=== PATIENT | female | born 1990 | race Caucasian/White ===

== ENCOUNTER 2017-04-03 18:36 | Emergency (ER) | payer BC ==
[~2017-04-03] VITALS: Ht 152.4 cm; Wt 68.0 kg
[2017-04-03 18:41] VITALS: BP_SYST 117
--- NOTE | 2017-04-03 18:48 | NUR ---
Patient to ER bed 3 to gown for evaluation. Side rails up. Report given to Edith LOZANO.
--- NOTE | 2017-04-03 18:53 | NUR ---
PT AAOX4, ABLE TO VERBALIZE NEEDS. PT STATES SHE HAS HAD 5/10 RIGHT PELVIC PAIN FOR THE PAST TWO MONTHS. PT STATES SHE STARTED HER PERIOD YESTERDAY AND HAS NOTICED A LOT OF CLOTS WHICH IS UNUSUAL FOR HER. PT STATES SHE HAS BEEN TAKING TYLENOL WITH NO PAIN RELIEF. PT STATES SHE SAW HER PCP 2 WEEKS AGO AND WAS TOLD SHE HAD PELVIC INFLAMMATORY DISEASE AND WAS GIVEN ABX AND TOLD THAT HER PAIN SHOULD BE RELIEVED, BUT IT HAS NOT PER PT. NO OTHER COMPLAINTS/INJURIES PER PT OR NOTED.
[2017-04-03 19:05] LABS: BILIRUBIN,URINE NEGATIVE (NEGATIVE); BLOOD, URINE 3+ (NEGATIVE); CLARITY/URINE CLEAR (CLEAR); COLOR,URINE YELLOW (YELLOW); GLUCOSE,URINE NEGATIVE (NEGATIVE); KETONES,URINE TRACE (NEGATIVE); LEUKOCYTE ESTERASE ,URINE 1+ (NEGATIVE); NITRITE, URINE NEGATIVE (NEGATIVE); PROTEIN URINE NEGATIVE (NEGATIVE); UROBILINOGEN,URINE 0.2 (0.2-1.0)
[2017-04-03 19:13] LABS: BACTERIA,URINE FEW /HPF (None Seen); RBC,URINE 20-50 /HPF (0-3)
--- NOTE | 2017-04-03 19:20 | NUR ---
Assumed care of patient. Patient calmly resting in ER bed, vital signs within therapeutic range.
[2017-04-03 19:27] LABS: BASOPHILS % (AUTO) 0.5 % (0.0-2.0); EOSINOPHILS # (AUTO) 0.1 K/uL (0.0-0.4); HEMATOCRIT 43.1 % (36-48); HEMOGLOBIN 14.2 g/dL (12.0-16.0); LYMPHOCYTES # (AUTO) 1.9 K/uL (1.0-5.5); LYMPHOCYTES % (AUTO) 23.6 % (20.5-51.5); MEAN CORPUSCULAR HEMOGLOBIN 28 pg (27-31); MEAN CORPUSCULAR HGB CONC 33 % (32-36); MEAN CORPUSCULAR VOLUME 86 fL (79.0-98.0); MONOCYTES # (AUTO) 0.7 K/uL (0.0-1.0); MONOCYTES % (AUTO) 8.2 % (1.7-9.3); NEUTROPHILS # (AUTO) 5.4 K/uL (1.8-7.7); NEUTROPHILS % (AUTO) 66.7 % (40.0-70.0); PLATELET COUNT (AUTO) 324 K/uL (130-430); RED BLOOD CELL COUNT(AUTO) 5.02 MIL/uL (4.2-6.2); RED CELL DISTRIBUTION WIDTH 12.4 % (9.0-15.0); WHITE BLOOD COUNT (AUTO) 8.1 K/uL (4.8-10.8)
--- NOTE | 2017-04-03 19:30 | NUR ---
ER Dr. Thomas at bedside examining patient.
[2017-04-03 19:43] LABS: CREATININE 0.54 mg/dL (0.55-1.30)
[2017-04-03] MEDS ORDERED: NACL 0.9% 1,000 ML IV ONE (19:45)
[2017-04-03 19:47] LABS: TOTAL BILIRUBIN 0.3 mg/dL (0.0-1.0)
[2017-04-03] MEDS ORDERED: ONDANSETRON HCL 4 MG/2 ML VIAL IVP ONE (20:00)
[2017-04-03] MEDS ORDERED: MORPHINE 4 MG/ML INJ. SYRINGE IVP ONE (20:00)
--- NOTE | 2017-04-03 20:00 | NUR ---
# 22 gauge angiocath placed to left AC. Use of asceptic technique. Blood return noted. Flushed with 10 cc of normal saline. No evidence of infiltration noted. Patient tolerated well.
--- NOTE | 2017-04-03 20:48 | NUR ---
Patient calmly resting in ER bed, no signs of distress noted. Vital signs within therapeutic range.
[2017-04-03 22:00] VITALS: BP_SYST 119
--- NOTE | 2017-04-03 22:00 | NUR ---
Patient given written and verbal discharge instructions and verbalizes understanding. ER MD discussed with patient the results and treatment provided. Patient in stable condition. ID arm band removed. IV catheter removed intact and dressing applied, no active bleeding. Rx of doxyxycline, motrin, and fleet enema given. Patient educated on pain management and to follow up with PMD. Pain Scale 0/10. Opportunity for questions provided and answered.
== END 2017-04-03 22:00 | disposition home or self-care (01) ==
LOC: SED 18:36
DX: K59.00 Constipation, unspecified (principal); R31.9 Hematuria, unspecified
CPT/HCPCS: 36415; 74176; 80053; 81000; 81025; 83690; 85025; 87086; 96361; 96374; 96375; 99285; J2270; J2405; J7030

== ENCOUNTER 2018-06-22 23:20 | Emergency (ER) | payer BC ==
[~2018-06-22] VITALS: Ht 149.9 cm; Wt 72.6 kg
[2018-06-22 23:26] VITALS: BP_SYST 112
--- NOTE | 2018-06-22 23:29 | NUR ---
Patient to ER bed 4 to gown for evaluation. Side rails up. Report given to ISSAC LOZANO.
--- NOTE | 2018-06-22 23:33 | NUR ---
ER at bedside examining patient.
--- NOTE | 2018-06-22 23:33 | NUR ---
Светлана hodges in [facility] - 06/22/18 at 2334 by SDEDPR JANINE Pagan at bedside examining patient.
--- NOTE | 2018-06-22 23:35 | NUR ---
Pt C/O headache and nausea x 5 hours. Pt states she took Aleve with no relief. Pt states she is sensitive to light. Pain is located in the posterior head 8/10 nonradiating. Pt denies any other symptoms at this time. Will continue to monitor.
[2018-06-22] MEDS ORDERED: ONDANSETRON HCL 4 MG/2 ML VIAL IVP ONE (23:45)
[2018-06-22] MEDS ORDERED: KETOROLAC TROMETHAMINE 30 MG VIAL IVP ONE (23:45)
[2018-06-22] MEDS ORDERED: DIPHENHYDRAMINE INJ 50 MG/ML VIAL IVP ONE (23:45)
[2018-06-23 00:27] LABS: WHITE BLOOD COUNT (AUTO) 8.7 K/uL (4.8-10.8)
[2018-06-23 00:28] LABS: BASOPHILS % (AUTO) 0.2 % (0.0-2.0); EOSINOPHILS % (AUTO) 1.2 % (0.0-4.0); HEMATOCRIT 42.9 % (36-48); HEMOGLOBIN 14.4 g/dL (12.0-16.0); LYMPHOCYTES % (AUTO) 21.6 % (20.5-51.5); MEAN CORPUSCULAR HEMOGLOBIN 29 pg (27-31); MEAN CORPUSCULAR HGB CONC 34 % (32-36); MEAN CORPUSCULAR VOLUME 86 fL (79.0-98.0); MONOCYTES % (AUTO) 9.4 % (1.7-9.3); NEUTROPHILS % (AUTO) 67.6 % (40.0-70.0); PLATELET COUNT (AUTO) 306 K/uL (130-430); RED BLOOD CELL COUNT(AUTO) 4.98 MIL/uL (4.2-6.2)
[2018-06-23 00:29] LABS: CALCIUM 8.5 mg/dL (8.4-11.0); CREATININE 0.5 mg/dL (0.55-1.30); EOSINOPHILS # (AUTO) 0.1 K/uL (0.0-0.4); LYMPHOCYTES # (AUTO) 1.9 K/uL (1.0-5.5); MONOCYTES # (AUTO) 0.8 K/uL (0.0-1.0); NEUTROPHILS # (AUTO) 5.9 K/uL (1.8-7.7); POTASSIUM 3.6 mmol/L (3.5-5.1)
[2018-06-23 00:41] LABS: BILIRUBIN,URINE NEGATIVE (NEGATIVE); CLARITY/URINE CLEAR (CLEAR); COLOR,URINE YELLOW (YELLOW); GLUCOSE,URINE NEGATIVE (NEGATIVE); KETONES,URINE 1+ (NEGATIVE); LEUKOCYTE ESTERASE ,URINE NEGATIVE (NEGATIVE); NITRITE, URINE NEGATIVE (NEGATIVE); PH,URINE 6.5 (5.0-8.0); PROTEIN URINE NEGATIVE (NEGATIVE); UROBILINOGEN,URINE 0.2 (0.2-1.0)
[2018-06-23 00:42] LABS: ALBUMIN 3.8 g/dL (3.4-4.8); TOTAL BILIRUBIN 0.1 mg/dL (0.0-1.0)
[2018-06-23 00:45] LABS: BLOOD, URINE TRACE (NEGATIVE)
[2018-06-23 00:49] LABS: BACTERIA,URINE FEW /HPF (None Seen); WBC,URINE 0-3 /HPF (0-3)
--- NOTE | 2018-06-23 01:43 | NUR ---
Patient given written and verbal discharge instructions and verbalizes understanding. ER MD discussed with patient the results and treatment provided. Patient in stable condition. ID arm band removed. IV catheter removed intact and dressing applied, no active bleeding. Rx of TYLENOL AND ZOFRAN given. Patient educated on pain management and to follow up with PMD. Pain Scale 2/10. Opportunity for questions provided and answered. Medication side effect fact sheet provided.
[2018-06-23 01:44] VITALS: BP_SYST 112
== END 2018-06-23 01:44 | disposition home or self-care (01) ==
LOC: SED 23:20
DX: G43.909 Migraine, unspecified, not intractable, without status migrainosus (principal)
CPT/HCPCS: 36415; 80053; 81000; 81025; 85025; 96374; 96375; 99283; J1200; J1885; J2405

== ENCOUNTER 2021-11-29 02:50 | Emergency (ER) | payer BC ==
[~2021-11-29] VITALS: Ht 149.9 cm; Wt 59.9 kg
[2021-11-29 03:12] VITALS: BP_SYST 107
--- NOTE | 2021-11-29 03:19 | NUR ---
Patient triaged and placed in waiting room. VSS and patient appears in no acute distress at this time. Accompanied by sels, awaiting available bed, and MD notified of need for MSE.
--- NOTE | 2021-11-29 03:35 | NUR ---
Patient ambulatory to bed 7 for evaluation and treatment
--- NOTE | 2021-11-29 03:47 | NUR ---
JANINE Wray at bedside examining patient.
[2021-11-29] MEDS ORDERED: KETOROLAC TROMETHAMINE 60 MG/2 ML VIAL IM ONE (04:00)
[2021-11-29 04:18] LABS: BASOPHILS % (AUTO) 0.2 % (0.0-2.0); EOSINOPHILS % (AUTO) 0.5 % (0.0-4.0); HEMATOCRIT 40.4 % (36-48); HEMOGLOBIN 13.8 g/dL (12.0-16.0); LYMPHOCYTES # (AUTO) 1.3 K/uL (1.0-5.5); LYMPHOCYTES % (AUTO) 13.5 % (20.5-51.5); MEAN CORPUSCULAR HEMOGLOBIN 29 pg (27-31); MEAN CORPUSCULAR HGB CONC 34 % (32-36); MEAN CORPUSCULAR VOLUME 85 fL (79.0-98.0); MONOCYTES # (AUTO) 0.8 K/uL (0.0-1.0); MONOCYTES % (AUTO) 8.6 % (1.7-9.3); NEUTROPHILS # (AUTO) 7.2 K/uL (1.8-7.7); NEUTROPHILS % (AUTO) 77.2 % (40.0-70.0); PLATELET COUNT (AUTO) 253 K/uL (130-430); RED BLOOD CELL COUNT(AUTO) 4.74 MIL/uL (4.2-6.2); RED CELL DISTRIBUTION WIDTH 13.7 % (9.0-15.0); WHITE BLOOD COUNT (AUTO) 9.4 K/uL (4.8-10.8)
--- NOTE | 2021-11-29 04:18 | NUR ---
Pt C/O epigastric pain x2wks with nausea AOX4 VSS Able to make needs known NAD at this time Will continue to monitor
[2021-11-29 04:56] LABS: BILIRUBIN,URINE NEGATIVE (NEGATIVE); BLOOD, URINE NEGATIVE (NEGATIVE); CLARITY/URINE CLEAR (CLEAR); COLOR,URINE YELLOW (YELLOW); GLUCOSE,URINE NEGATIVE (NEGATIVE); KETONES,URINE 3+ (NEGATIVE); LEUKOCYTE ESTERASE ,URINE TRACE (NEGATIVE); NITRITE, URINE NEGATIVE (NEGATIVE); PROTEIN URINE NEGATIVE (NEGATIVE); UROBILINOGEN,URINE 0.2 (0.2-1.0)
[2021-11-29 04:57] LABS: CREATININE 0.59 mg/dL (0.55-1.30)
[2021-11-29 05:02] LABS: ALBUMIN 3.5 g/dL (3.4-4.8); TOTAL BILIRUBIN 0.4 mg/dL (0.0-1.0)
[2021-11-29] MEDS ORDERED: ACETAMINOPHEN 500 MG TABLET PO ONE (05:15)
[2021-11-29 05:51] LABS: RBC,URINE 0-3 /HPF (0-3)
[2021-11-29 05:52] LABS: BACTERIA,URINE None Seen /HPF (None Seen)
[2021-11-29 05:53] LABS: MUCUS,URINE 3+ /LPF (None Seen)
[2021-11-29] MEDS ORDERED: NACL 0.9% 1,000 ML IV ONE (06:30)
[2021-11-29] MEDS ORDERED: KETOROLAC TROMETHAMINE 30 MG VIAL IVP ONE (06:30)
[2021-11-29] MEDS ORDERED: cefTRIAXone 1 GM in D5W 50 ML IV ONE (06:30)
[2021-11-29] MEDS ORDERED: CEFU250T85 PO (06:34)
[2021-11-29] MEDS ORDERED: TRAM50TA2 PO (06:34)
[2021-11-29] MEDS ORDERED: ONDA-8 TL (06:34)
[2021-11-29] MEDS ORDERED: cefTRIAXone 1 GM VIAL ONE ×2 (06:39→07:02)
[2021-11-29] MEDS ORDERED: LIDOCAINE 1%, 20 ML MDV 20 ML ONE (07:02)
[2021-11-29 07:07] VITALS: BP_SYST 130
--- NOTE | 2021-11-29 07:11 | NUR ---
Patient given written and verbal discharge instructions and verbalizes understanding. ER MD discussed with patient the results and treatment provided. Patient in stable condition. ID arm band removed. IV catheter removed intact and dressing applied, no active bleeding. Rx given. Patient educated on pain management and to follow up with PMD. Opportunity for questions provided and answered. Medication side effect fact sheet provided.
== END 2021-11-29 07:08 | disposition home or self-care (01) ==
LOC: SED 02:50
DX: N12 Tubulo-interstitial nephritis, not specified as acute or chronic (principal); R10.11 Right upper quadrant pain; R11.0 Nausea; Z79.899 Other long term (current) drug therapy
CPT/HCPCS: 99284; 96365; 76705; 96375; 80053; 81000; 84703; 83690; 85025; 36415; 81025; Q0162; J0696; J1885; J2001